=== PATIENT | female | born 2005 | race Caucasian/White ===

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

== ENCOUNTER 2025-02-03 03:23 | Outpatient (CLI) | payer MEDICAID, SELFPAY ==
--- NOTE | 2025-02-03 05:45 | DI.MRI_ITS ---
Exam(s) MR UPPER JOINT RT WO EXAM: MR UPPER JOINT RT WO CLINICAL HISTORY: R SHOULDER PAIN,instability rt shoulder joint,m25.311. TECHNIQUE: Multiplanar multisequence MRI was performed. COMPARISON: CR XR SHOULDER RT COMPLETE 2+V from 11/11/2024 FINDINGS: BONES: There is no fracture or contusion pattern. Note is made of an os acromiale. JOINTS: The acromioclavicular joint is normal. The glenohumeral joint is normal. There is no joint effusion. TENDONS: Supraspinatus: Unremarkable. Infraspinatus: There is a mild hyperintense signal seen in the infraspinatus tendon which may represent a tendinosis. There is no evidence of a full- thickness tear. Subscapularis: Unremarkable. Teres Minor: Unremarkable. Biceps and Sharon: Unremarkable. MUSCLES: Unremarkable. GLENOID LABRUM: Unremarkable on this noncontrast examination. SOFT TISSUES: Unremarkable. LIGAMENTS: Unremarkable. OTHER: There is fluid seen in the subcoracoid bursa. IMPRESSION: 1. Mild tendinopathy of the infraspinatus tendon without evidence of a rotator cuff tear. 2. Fluid seen in the subcoracoid bursa. 3. The glenoid labrum is grossly unremarkable on this noncontrast examination. If there are continued concerns, an MR arthrogram should be considered. 4. Os acromiale is present. DATA REPOSITORY:
== END 2025-02-03 03:43 ==
LOC: DI 03:23
PROVIDERS: PCP Nurse Practitioner Family; Visit Provider Student in an Organized Health Care Education/Training Program
DX: M25.311 Other instability, right shoulder (principal)
CPT/HCPCS: 73221